=== PATIENT | female | born 1965 | race Two or more races ===

== ENCOUNTER 2024-10-04 11:30 | Day surgery (SDC) | payer MEDICAID, SELFPAY ==
[2024-10-03 11:29] VITALS: BMI 26.9
[2024-10-03 12:55] LABS: Basophils % (Auto) 1 % (0-2.5); Eosinophils # (Auto) 0.1 Thou/mm3 (0.0-0.5); Eosinophils % (Auto) 1 % (0-10); Hematocrit 38.5 % (36.0-46.0); Hemoglobin 13.2 g/dL (12.0-16.0); Immature Granulocytes % (Auto) 0 % (0-0); Immature Granulocytes Auto 0.02 Thou/mm3 (0.00-0.00); Lymphocytes # (Auto) 1.8 Thou/mm3 (1.0-4.8); Lymphocytes % (Auto) 31 % (10-50); Mean Corpuscular HGB Conc 34.3 g/dl (31.0-37.0); Mean Corpuscular Hemoglobin 28.5 pg (25.0-35.0); Mean Corpuscular Volume 83 fL (80-100); Monocytes # (Auto) 0.6 Thou/mm3 (0.0-0.8); Monocytes % (Auto) 9 % (0-12); Neutrophils # (Auto) 3.5 Thou/mm3 (1.8-7.7); Neutrophils % (Auto) 58 % (37-80); Nucleated Red Blood Cell % 0 /100 WBC (0); Platelet Count 376 Thou/mm3 (140-440); RDW Standard Deviation 39.4 fL (36.4-46.3); Red Blood Count 4.63 Miln/mm3 (4.00-5.20)
[2024-10-03 13:04] LABS: INR 0.9 (0.9-1.3); Partial Thromboplastin Time 26.2 Seconds (22.0-36.0); Prothrombin Time 10.4 Seconds (9.0-12.2)
[2024-10-03 13:08] LABS: Anion Gap 8 (7-16); BUN/Creatinine Ratio 18 Ratio (12-20); Blood Urea Nitrogen 11 mg/dL (9-23); Calcium 9.7 mg/dL (8.3-10.6); Carbon Dioxide 28.4 mMol/L (20.0-31.0); Chloride 105 mMol/L (98-107); Creatinine (Component) 0.6 mg/dL (0.6-1.3); Estimated Creatinine Clearance 90.4 mL/min (>60); Glucose 94 mg/dL (74-106); Osmolality,Calculated 280 (275-295); Potassium 3.9 mMol/L (3.4-5.1); Sodium 141 mMol/L (136-145); eGFR > 60 See Note
--- NOTE | 2024-10-03 14:19 | SUR.PREOP ---
Cardiac records reviewed with Dr Cardenas.
[2024-10-04] VITALS (8 sets, daily range): BP systolic 113–132; BP diastolic 69–88; PULSE 70–89; RESP 10–18; TEMP 36.3–36.5; O2SAT 92–98; BMI 26.7
[2024-10-04] MEDS: RINGERS LACTATED 1000 ML 1,000 ML 20 ML IV (12:02)
--- NOTE | 2024-10-04 15:10 | SUR.PHASEI ---
pt received from OR in recovery bay 1. pt asleep but responds to voice, breathing unlabored on room air. v/s stable. pt dressing to left knee cdi. report received from Dr. Cardenas and Juancarlos HOPKINS.
--- NOTE | 2024-10-04 15:16 | PD.SUROPNT ---
Date of Procedure 10/04/24 Pre Op Diagnosis 1. Torn medial meniscus left knee joint 2. Torn lateral meniscus 3 degenerative joint disease changes 4. Synovitis with medial plica Post Op Diagnosis Same Procedure 1. Partial medial meniscectomy 2 partial lateral meniscectomy 3 chondroplasty 4. Partial synovectomy including excision plica Findings Refer dictation Procedure Description The patient was given general endotracheal anesthesia. Once satisfactory anesthesia was achieved, tourniquet was placed on left upper thigh. Following that the part was thoroughly prepped and draped. After using Esmarch the tourniquet pressure was raised to 350 mmHg. A skin incision was made proximal to lateral tibial plateau and arthroscope was introduced in the usual fashion. Another a skin incision was made in suprapatellar pouch area and outlet was established. The findings were noted as below. In suprapatellar pouch area significant synovial tissue inflammation was present. Medial plica was present as well. 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 The anterior femoral condyle also showed grade 3 chondromalacia. Soft tissue impingement was present. Medial shelf was present the patellar tracking was checked and found to be good. The medial compartment showed grade 3 chondromalacia for medial tibial plateau and medial femoral condyle. 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 The medial meniscus showed degeneration and tear of the anterior horn. Another skin incision was made proximal to medial tibial plateau and a probe was introduced and findings were confirmed. The anterior cruciate ligament was intact. The anterior drawer test was performed and found to be good. With the help of probe the integrity of ACL was tested and found to be good. The lateral compartment showed intact lateral femoral condyle and tibial plateau. Lateral meniscus showed degeneration of the body and anterior horn. A shaver was introduced and shaving of the anterior horn of medial meniscus was performed. Soft tissue impingement was shaved off. Chondroplasty of the medial femoral condyle and medial tibial plateau was performed. The shaving of the body and anterior horn of lateral meniscus was done. The chondroplasty of the patella and and anterior femoral condyle was performed. The soft tissue impingement was shaved off. A partial synovectomy including excision of plica was performed. Copious amount of irrigation was used to irrigate the knee joint. All the debris were removed. 3-0 Prolene was used to close the wound. About 20 mL of quarter percent Marcaine along with 10 mg of Duramorph was injected. Patient tolerated procedure well. Estimated blood loss was about 5 mL. Prognosis in this case is fair. Because of some area in the medial tibial plateau having grade IV chondromalacia there is a possibility patient may continue having short and or long-term pain. If it persist patient may be a candidate for knee replacement. Patient is fully aware of that. Patient was taken to the recovery room in good condition. Anesthesia GETA Pathology / specimen None Estimated Blood Loss 1 Surgeon Sam Dubose MD Surgical Staff Operation Date: 10/04/24 13:45 Case Staff Anesthesiologist: Trung Cardenas
--- NOTE | 2024-10-04 15:44 | SUR.PHASEI ---
pt able to tolerate oral fluids without difficulty swallowing or nausea/vomiting.
--- NOTE | 2024-10-04 16:35 | SUR.PHASEII ---
pt awake and alert, breathing unlabored on room air. v/s stable. pt dressing to left lower extremity cdi. pt able to transfer to wheelchair with minimal assistance. d/c instructions given with son and sister in room, all questions answered. pt d/c via wheelchair with all belongings.
--- NOTE | 2024-10-04 19:09 | ESHP_ITS ---
RE: EMIR BAÑUELOS : 1965 DATE OF ADMISSION: 10/04/2024 REASON FOR ADMISSION: The patient came to my office on 10/03/2024 for detailed preop history and physical examination. HISTORY OF PRESENTING COMPLAINT: As per history available, the patient stated that she stepped on a rock and twisted her left knee joint. The injury happened almost two years back. Since then, the patient has got significant pain. The intensity of pain is graded 8-9/10. The patient is unable to walk more than 1 or 2 blocks. The quality of life and activities of daily living is affected. The patient is unable to sleep. There is a history of swelling, clicking, and locking of the left knee joint. For some time, the patient will use brace. However, she is not using anymore. The patient believes that she could not do physical therapy due to significant pain. PAST MEDICAL HISTORY: The patient has a history of high blood pressure. No history of diabetes mellitus, asthma, seizure, chest pain, myocardial infarction, or bleeding disorder. PAST SURGICAL HISTORY: Nil. DRUG HISTORY: 1. Atorvastatin 2. Loratadine 3. Omeprazole ALLERGIES: NIL KNOWN. FAMILY HISTORY AND SOCIAL HISTORY: The patient denies smoking, drinking, is not working. PHYSICAL EXAMINATION: GENERAL: Normal built lady. VITAL SIGNS: Pulse 78 per minutes, blood pressure 128/82. NECK: Soft, supple. No mass felt. Trachea is centrally placed. CARDIOVASCULAR SYSTEM: First and second heart sounds normal. No murmur heard. LUNGS: Respiratory system: Bilateral vesicular breath sounds. CHEST: Clear. ABDOMEN: Soft. No mass felt. Bowel sounds present. BREASTS: Breast examination is not indicated in this case. RECTAL: The patient is advised to see the family physician for rectal examination. EXTREMITIES: Left knee examination revealed mild swelling. There is 2+ tenderness along the medial joint line. Active range of motion 0 to 120 degrees of flexion. Rosa's test is positive. Drawer test and Maryanne tests were negative. Neurovascularly is intact. DIAGNOSTIC DATA: MRI scan of the left knee joint revealed torn meniscus with degenerative joint disease changes and synovitis with increased joint fluid. ASSESSMENT AND PLAN: Since the patient is symptomatic and is affecting her quality of life, therefore, left knee arthroscopy was discussed and advised. Risks with anesthesia were explained and that includes, but not limited to reaction to anesthetic agents, cardiac arrest, or rarely it might be fatal. Risks of the operation includes infection and if that happens, the patient may need further surgical procedure. Other risks include delayed healing, wound dehiscence, etc. No guarantees is given regarding the outcome of the procedure. Indeed, if one finds grade 4 chondromalacia, the patient may not get better so far as pain is concerned and if the pain is quite severe, the patient may be a candidate for knee replacement. The patient is fully aware of that. This surgery is scheduled for 10/04/2024. Appropriate lab work done. DT: 15:24:21 TT: 19:07:00 Ref: [id number] - TID: [id number]
== END 2024-10-04 16:35 | disposition home or self-care (01) ==
PROVIDERS: Referring Provider Orthopaedic Surgery; Visit Provider Orthopaedic Surgery
PROC: (CPT 29870; principal; 2024-10-04 13:30)
DX: S83.242A Other tear of medial meniscus, current injury, left knee, initial encounter (principal); M17.12 Unilateral primary osteoarthritis, left knee; M65.90 Unspecified synovitis and tenosynovitis, unspecified site; S83.282A Other tear of lateral meniscus, current injury, left knee, initial encounter
CPT/HCPCS: 29875; 29880; 36415; 80048; 85025; 85610; 85730; A4217; A4649; J0131; J1100; J2274; J2704; J2765; J3010; J3490; J7120; J0665; J2270

== ENCOUNTER 2024-11-07 10:00 | Outpatient (RCR) | payer MEDICAID, SELFPAY ==
--- NOTE | 2024-10-29 12:49 | PT.OIERPT ---
PT OP Initial Eval Patient Information Outpatient Physical Therapy Treatment Date: 10/29/24 Visit Reasons: s/p left knee surgery Medical Diagnosis: Z98.890 Treatment Dx #1: Left Knee Pain Treatment Dx #2: Left Knee Mobility Deficits Start of Care: 10/29/24 Date of Onset: 10/04/24 Smoking Status Smoking Status: Never smoker Initial Assessment Subjective: Pt is a 59 y/o female s/p left knee arthroscopic surgery 10/04/24. Pt still has knee pain (6/10) with activities. Pt has limitation with walking, standing, chores, self care, balance, uneven surfaces, squatting, and performing recreational activities. Objective: Left Knee AROM: 0 deg to 100 deg with pain Left Knee MMTs: grossly 3+/5 Left Hip MMTs: grossly 3+/5 Knee Cap Mobility: hypomobile in all plane SLS: NT Assessment: Pt demonstrate left knee mobility and strength deficits s/p knee surgery leading to difficulty with ADLs. Pt will benefit from physical therapy to increase ROM, strength, and work on ambulation. Short Term and Senior Living Goals 1) Increase left knee AROM WNL in 8 wks to be able to perform chores 2) Decrease knee pain to 2/10 in 8 wks to be able to be able to stand more than 30 mins 3) Increase left knee MMTs grossly to 4/5 in 8 wks to be able to perform squatting activities 4) Increase left hip MMTs grossly to 4-/5 in 8 wks to be able to walk more than 30 mins 5) Indep with HEP Treatment Plan 1) Manual Therapy 2) Therapeutic Activities 3) Therapeutic Exercises 4) Modalities (ice, heat) 5) Balance Training 6) Gait Training Frequency and Duration: 2 x wk for 8 wks Certification Dates: 10/29/24 to 01/26/25 Procedure Charges OP PT Eval Mod Complex 30 minutes: Yes
--- NOTE | 2024-10-29 14:14 | PT.ODAYNRPT ---
PT Outpatient Daily Note OP Daily Note Outpatient Physical Therapy Treatment Date: 10/29/24 Visit Reasons: s/p left knee surgery Subjective: No progress to report at this time, pt continues to have LBP. Objective: Please see flow sheet for ther ex list. Assessment: Pain continues to be present limiting intervention progression. Plan: Continue with pOC. Length of Time (minutes) of Treatment: 30 Minutes Procedure Charges Therapeutic Exercise 30 minutes: Yes
--- NOTE | 2024-11-05 10:42 | PT.ODAYNRPT ---
PT Outpatient Daily Note OP Daily Note Outpatient Physical Therapy Treatment Date: 11/05/24 Visit Reasons: s/p left knee surgery Subjective: Pt's knee was very sore after last session. Pt's knee hurt with walking longer than 10 mins. Objective: Please see flow chart for list of ther ex performed Assessment: unable to perform SLR as instructed due to pain and weakness. Plan: Continue with PT Length of Time (minutes) of Treatment: 30 Minutes Procedure Charges Therapeutic Exercise 30 minutes: Yes
--- NOTE | 2024-11-07 10:34 | PT.ODAYNRPT ---
PT Outpatient Daily Note OP Daily Note Outpatient Physical Therapy Treatment Date: 11/07/24 Visit Reasons: s/p left knee surgery Subjective: Pt c/o knee pain, continues to use SPC for ambulation. Objective: Please see flow sheet for ther ex list. Assessment: Pt guarded and performs AROM interventions slow fearful of pain response with activity. Pt encouraged to perform witin tolerance. Plan: Continue with pOC. Length of Time (minutes) of Treatment: 30 Minutes Procedure Charges Therapeutic Exercise 30 minutes: Yes
== END 2024-11-08 23:59 | disposition home or self-care (01) ==
LOC: CPTX 10:00
PROVIDERS: PCP Orthopaedic Surgery; Referring Provider Orthopaedic Surgery; Visit Provider Orthopaedic Surgery
DX: M25.562 Pain in left knee (principal); R26.2 Difficulty in walking, not elsewhere classified; R26.89 Other abnormalities of gait and mobility; Z98.890 Other specified postprocedural states
CPT/HCPCS: 97110; 97162

== ENCOUNTER 2024-12-04 09:30 | Outpatient (RCR) | payer MEDICAID, SELFPAY ==
--- NOTE | 2024-11-18 15:27 | PT.ODAYNRPT ---
PT Outpatient Daily Note OP Daily Note Outpatient Physical Therapy Treatment Date: 11/18/24 Visit Reasons: S/P left knee surgery Subjective: Pt reports noticing progress with L knee. Objective: Please see flow sheet for ther ex list. Assessment: Working on step up exercise to simulate pt managing step/stairs at home. 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 Plan: Continue with POC. Length of Time (minutes) of Treatment: 30 Minutes Procedure Charges Therapeutic Exercise 30 minutes: Yes
--- NOTE | 2024-11-20 15:19 | PT.ODAYNRPT ---
PT Outpatient Daily Note OP Daily Note Outpatient Physical Therapy Treatment Date: 11/20/24 Visit Reasons: S/P left knee surgery Subjective: Pt reports knee has been feeling better and notices flexibility is improving. Continues to use cane because she does not feel confident in her L knee strength yet and at times feels like knee is doing to give out but has not done so. Objective: Please see flow sheet for ther ex list. Assessment: Pt ROM into flexion continues to improve. Pt can ambulate in clinic with no AD with no LOB and no knee buckling. Plan: Continue working on strength and GT. Length of Time (minutes) of Treatment: 30 Minutes Procedure Charges Therapeutic Exercise 30 minutes: Yes
--- NOTE | 2024-11-25 16:16 | PT.ODAYNRPT ---
PT Outpatient Daily Note OP Daily Note Outpatient Physical Therapy Treatment Date: 11/25/24 Visit Reasons: S/P left knee surgery Subjective: Pt is concerns with swelling around the knee. Pt will follow up with surgeon next monday Objective: Please see flow chart for list of ther ex performed Assessment: progressing with knee flexion AROM. Pt instructed to continue ice at home to help with edema noted around the knee Plan: Continue with PT Length of Time (minutes) of Treatment: 30 Minutes Procedure Charges Therapeutic Exercise 30 minutes: Yes
--- NOTE | 2024-11-27 09:33 | PT.ODAYNRPT ---
PT Outpatient Daily Note OP Daily Note Outpatient Physical Therapy Treatment Date: 11/27/24 Visit Reasons: S/P left knee surgery Subjective: Pt's knee feels better. Pt does not have much concerns today. Objective: Please see flow chart for list of ther ex performed Assessment: progressing with hip resistance exercsies; Pt further demonstrate improve WB on the left LE in stance Plan: Continue with PT Length of Time (minutes) of Treatment: 30 Minutes Procedure Charges Therapeutic Exercise 30 minutes: Yes
--- NOTE | 2024-12-02 10:04 | PT.ODAYNRPT ---
PT Outpatient Daily Note OP Daily Note Outpatient Physical Therapy Treatment Date: 12/02/24 Visit Reasons: S/P left knee surgery Subjective: Pt's knee is better, however, still pain with certain activities. Pt has a follow up appt with surgeon today Objective: Please see flow chart for list of ther ex performed Assessment: progressing with knee flexion AROM; instructed patient on knee flexion stretch which helped increase ROM. Plan: Continue with PT Length of Time (minutes) of Treatment: 30 Minutes Procedure Charges Therapeutic Exercise 30 minutes: Yes
--- NOTE | 2024-12-04 10:13 | PT.ODAYNRPT ---
PT Outpatient Daily Note OP Daily Note Outpatient Physical Therapy Treatment Date: 12/04/24 Visit Reasons: S/P left knee surgery Subjective: Pt had a follow up with surgeon and recommends knee replacement. Pt plans to hold off on the procedure. Pt feels worse since her knee surgery and continue to notice swelling. Objective: Please see flow chart for list of ther ex performed Assessment: patient exhibit mild-moderate edema around the knee. Recommend ice at home and post ice in therapy to help with the swelling. Pt is progressing with closed chain exercises Plan: Continue with PT Length of Time (minutes) of Treatment: 30 Minutes Procedure Charges Therapeutic Exercise 30 minutes: Yes
== END 2024-12-09 23:59 | disposition home or self-care (01) ==
LOC: CPTX 09:30
PROVIDERS: PCP Orthopaedic Surgery; Referring Provider Orthopaedic Surgery; Visit Provider Orthopaedic Surgery
DX: M25.562 Pain in left knee (principal); R26.89 Other abnormalities of gait and mobility; R26.2 Difficulty in walking, not elsewhere classified; Z98.890 Other specified postprocedural states
CPT/HCPCS: 97110

== ENCOUNTER 2025-01-08 09:00 | Outpatient (RCR) | payer MEDICAID, SELFPAY ==
--- NOTE | 2024-12-10 10:47 | PTNOTE_ITS ---
PT Outpatient Daily Note OP Daily Note Outpatient Physical Therapy Treatment Date: 12/10/24 Visit Reasons: S/P left knee surgery Subjective: Pt reports L knee is doing better but not strength is not where she would like. Objective: Please see flow sheet for ther ex list. 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 Plan: Continue with pOC. Length of Time (minutes) of Treatment: 30 Minutes Procedure Charges Therapeutic Exercise 30 minutes: Yes
--- NOTE | 2024-12-12 11:38 | PTNOTE_ITS ---
PT Outpatient Daily Note OP Daily Note Outpatient Physical Therapy Treatment Date: 12/12/24 Visit Reasons: S/P left knee surgery Subjective: Pt reports knee is doing better, she is using cane less each time. Objective: Please see flow sheet for ther ex list. 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 Plan: Continue with pOC. Length of Time (minutes) of Treatment: 30 Minutes Procedure Charges Therapeutic Exercise 30 minutes: Yes
--- NOTE | 2024-12-16 11:48 | PT.ODS1RPT ---
PT OP Progress/Discharge Note Date of Service: 12/16/24 Progress Note/DC Note Progress Note/Discharge Note: Progress Note Patient Information Visit Reasons: S/P left knee surgery Medical Diagnosis: z98.890 Treatment Dx #1: Left Knee Mobility Deficits Treatment Dx #2: Left Knee Pain Service Continue Service or Discharge: Continue Service Certification Date Certification Dates: 12/16/24 to 03/17/25 Status Subjective: Pt's knee is better, however, still has pain with certain acclivities. Pt has difficulty with prolonged walking, uneven surfaces, balance, and recreational activities. Pt will like to continue more physical therapy to work on her strength. Objective: Left Knee AROM: all motions are WNL Left KNee MMTs: grossly 4-/5 Left Hip MMTs: grossly 4-/5 SLS: 5 sec Assessment: Pt is progressing with knee mobility and strength, however, still has difficulty with single limb activities leading to limitation with certain ADLs such as balance, self care, and recreational activities. Pt has not met set goals and will continue to benefit from physical therapy; thank you for your referrals. Plan: Continue with PT/POC and add 8 sessions (2 x wk for 4 wks) Procedure Charges Therapeutic Exercise 30 minutes: Yes
--- NOTE | 2025-01-06 15:11 | PT.ODAYNRPT ---
PT Outpatient Daily Note OP Daily Note Outpatient Physical Therapy Treatment Date: 01/06/25 Visit Reasons: S/P left knee surgery Subjective: Pt's knee hurts where the surgical site is. Pt mentioned she's going to ask surgeon for update imaging Objective: Please see flow chart for list of ther ex performed Assessment: tolerate exercises with minimal pain; difficulty tolerating balance exercises on airex due to knee pain. Plan: Continue with PT Length of Time (minutes) of Treatment: 30 Minutes Procedure Charges Therapeutic Exercise 30 minutes: Yes
--- NOTE | 2025-01-08 10:13 | PT.ODAYNRPT ---
PT Outpatient Daily Note OP Daily Note Outpatient Physical Therapy Treatment Date: 01/08/25 Visit Reasons: S/P left knee surgery Subjective: Pt reports L knee is doing better. Objective: Please see flow sheet for ther ex list. Assessment: Pt demonstrates good squatting mechanics and good knee positioning with squat exercise to chair height. Plan: Continue with poC. Length of Time (minutes) of Treatment: 30 Minutes Procedure Charges Therapeutic Exercise 30 minutes: Yes
== END 2025-01-08 23:59 | disposition home or self-care (01) ==
LOC: CPTX 09:00
PROVIDERS: PCP Orthopaedic Surgery; Referring Provider Orthopaedic Surgery; Visit Provider Orthopaedic Surgery
DX: M25.562 Pain in left knee (principal); R26.2 Difficulty in walking, not elsewhere classified; R26.89 Other abnormalities of gait and mobility; Z98.890 Other specified postprocedural states
CPT/HCPCS: 97110

== ENCOUNTER 2025-01-13 09:31 | Outpatient (RCR) | payer MEDICAID, SELFPAY ==
--- NOTE | 2025-01-13 10:00 | PT.ODAYNRPT ---
PT Outpatient Daily Note OP Daily Note Outpatient Physical Therapy Treatment Date: 01/13/25 Visit Reasons: Left TKA Subjective: Pt's knee still painful with steps and stairs. Pt has a follow up appt with surgeon this week. Objective: Please see flow chart for list of ther ex performed Assessment: tolerate exercises with minimal knee pain; today patient was able to use 1# weight with LE exercises Plan: Continue with PT Length of Time (minutes) of Treatment: 30 Minutes Procedure Charges Therapeutic Exercise 30 minutes: Yes
--- NOTE | 2025-02-20 08:35 | PT.ODS1RPT ---
PT OP Progress/Discharge Note Date of Service: 02/20/25 Progress Note/DC Note Progress Note/Discharge Note: DC Note Patient Information Visit Reasons: Left TKA Service Discharge Date: 02/20/25 Status Assessment: Pt has been seen for 16 visits (eval + 15 visits). Pt last treated on 01/13/25. At this time Pt will be d/c from care due to no further visit approved via MD. Pt did not meet set goals in therapy; thank you for your referrals
== END 2025-02-08 23:59 | disposition home or self-care (01) ==
LOC: CPTX 09:31
PROVIDERS: PCP Orthopaedic Surgery; Referring Provider Orthopaedic Surgery; Visit Provider Orthopaedic Surgery
DX: M25.562 Pain in left knee (principal); R26.2 Difficulty in walking, not elsewhere classified; R26.89 Other abnormalities of gait and mobility; Z98.890 Other specified postprocedural states
CPT/HCPCS: 97110